=== PATIENT | female | born 1970 | race African-American/Black ===

== ENCOUNTER 2022-01-28 01:31 | Emergency (ER) | payer OTHER, SELFPAY ==
[2022-01-28] VITALS (7 sets, daily range): BP systolic 138–166; BP diastolic 78–106; PULSE 63–78; RESP 12–18; TEMP 36.1; O2SAT 98–100
--- NOTE | 2022-01-28 02:02 | ED.DIZZY ---
HPI - Dizziness General Chief Complaint: Dizziness Stated Complaint: vomiting Time Seen by Provider: 01/28/22 01:41 Source: patient, family and RN notes reviewed Mode of arrival: ambulatory Limitations: no limitations History of Present Illness HPI Narrative: 51-year-old female present to the emergency department for evaluation of recurrent dizziness. Patient states that 2 weeks ago she began having onset of dizziness that is worsened with head movement. Patient did have follow-up at an outside hospital and had a work-up including a head CT which was negative. Patient was provided meclizine and Zofran. Patient states that the Zofran has helped with her nausea but that she is still having symptoms of vertigo. Patient has been taking the meclizine more frequently without significant improvement. Patient denies any associated numbness or weakness. Patient denies any falls or injuries. Patient denies any headache or back or neck pain. Patient states the symptoms are very reproducible with turning her head or bending over. Symptoms are resolved when lying still or closing her eyes. Related Data Allergies Allergy/AdvReac Type Severity Reaction Status Date / Time No Known Allergies Allergy Verified 01/28/22 01:39 Review of Systems Review of Systems: CONSTITUTIONAL: Denies fever, chills, or sweats. EYES: Dizziness ENT: Denies rhinorrhea, congestion, sore throat, or otalgia. CARDIOVASCULAR: Denies chest pain, palpitations, or edema. RESPIRATORY: Denies cough or dyspnea. GASTROINTESTINAL: See HPI GENITOURINARY: Denies dysuria or hematuria. SKIN: Denies rash or itching. MUSCULOSKELETAL: Denies back pain, joint pain, or myalgia. NEUROLOGIC: See HPI PMFSH Family History Family History (Updated 05/09/16 @ 23:21 by DOCTOR UNKNOWN) Mother Patient's mother is in good health Father Patient's father is in good health Sibling Patient's sister is in good health Patient's brother is in good health Other Family history of malignant neoplasm of breast in first degree relative Social History Social History Smoking status: Never smoker Alcohol intake: never Exam Narrative: APPEARANCE: Well appearing, no pain, no distress, well-nourished. HEAD: normocephalic, atraumatic. EYES: PERRLA/EOMI, conjunctivae clear. Inducible vertigo when looking to the patient's right. Some sustained nystagmus with rightward gaze NOSE: Normal no drainage EARS:TMS clear with good light reflex. THROAT: Pharynx clear, no exudate. NECK: Supple. No adenopathy, no masses. RESPIRATORY: Airway patent, respirations nonlabored. Clear to auscultation bilaterally, no rales, rhonchi, wheezing. CARDIOVASCULAR: Regular rate and rhythm without murmurs rubs or gallops. ABDOMINAL: Soft, nontender, nondistended, normal bowel sounds MUSCULOSKELETAL: Moves all extremities. Strength/ROM intact, No edema, No calf tenderness. NEURO: Alert. Cranial nerves II through XII intact. Grossly intact SKIN: Warm, dry. Normal Color Course Course Emergency Course: Patient did feel some improvement with the treatment in the ED which did include p.o. Valium. Symptoms are consistent with a peripheral vertigo versus central vertigo. Patient was encouraged to have close follow-up with neurology with the hopes that she would be able to see a vestibular specialist. Patient was provided Valium for home and was warned on the increased fall risk not only from the vertigo but also from the Valium. Patient and family were comfortable with the plan for discharge and close follow-up. Patient was improved at time of discharge. Vital Signs Vital signs: Vital Signs Temperature 97.0 F L 01/28/22 01:37 Pulse Rate 78 01/28/22 01:37 Respiratory Rate 18 01/28/22 01:37 Blood Pressure 138/78 01/28/22 01:37 Pulse Oximetry 100 01/28/22 01:37 Temperature 97.0 F L 01/28/22 01:37 Pulse Rate 78 01/28/22 01:37 Respiratory Rate 18 01/28/22 01:37 Blood Pressure 138/78 04
[2022-01-28] MEDS: diphenhydrAMINE HCl INJ 50 MG/ML VIAL 25 MG IV PUSH (02:40)
[2022-01-28] MEDS: diazePAM (*CRX) 5 MG TABLET 2.5 MG PO (02:41)
[2022-01-28] MEDS: SODIUM CHLORIDE 0.9% IV 100 ML 500 ML (02:41)
[2022-01-28] MEDS: MECLIZINE HCL 25 MG TABLET PO (02:41)
[2022-01-28 02:49] LABS: Basophils Percent Auto 0.6 % (0.2-1.2); Eosinophils Absolute Auto 0.4 K/mm3 (0-0.3); Eosinophils Percent Auto 5.2 % (0-4.4); Hematocrit 42.6 % (37.0-47.0); Hemoglobin 13.3 g/dL (12.0-15.0); Immature Granulocyte Absolute 0.01 K/mm3 (0.00-0.031); Immature Granulocyte Percent A 0.1 % (0-0.5); Lymphocytes Percent Auto 31.6 % (18.3-44.2); Mean Corpuscular HGB Conc 31.2 g/dl (32-36); Mean Corpuscular Volume 83.4 fl (80-100); Mean Platelet Volume 10.7 fl (7.4-10.4); Monocytes Absolute Auto 0.6 K/mm3 (0.1-0.6); Monocytes Percent Auto 8.4 % (2.6-8.5); Neutrophils Absolute Auto 3.9 K/mm3 (1.3-6.7); Neutrophils Percent Auto 54.1 % (45.5-73.1); Platelet Count Result 311 k/mm3 (150-375); Red Blood Count 5.11 M/mm3 (4.2-5.4); Red Cell Distribution Width 16.6 % (11.5-14.5); White Blood Count 7.3 K/mm3 (4.5-10.0)
[2022-01-28 03:02] LABS: Alanine Aminotransferase 17 U/L (4-35); Albumin Level 4.8 g/dL (3.5-5.1); Alkaline Phosphatase 134 U/L (38-126); Anion Gap 7 mmol/L (8-16); Aspartate Amino Transferase 33 U/L (14-36); Bilirubin,Total 0.2 mg/dL (0.2-1.3); Blood Urea Nitrogen 15 mg/dL (7-17); Carbon Dioxide 35 mmol/L (22-30); Chloride 96 mmol/L (98-107); Estimated CRCL calculation 94 ml/min; Estimated Glomerular Filt Rate > 60; Glucose 119 mg/dL (65-110); Lipase 174 U/L (23-300); Potassium 3.6 mmol/L (3.4-5.0); Sodium 138 mmol/L (137-145)
== END 2022-01-28 04:55 | disposition home or self-care (01) ==
PROVIDERS: Emergency Provider Emergency Medicine; PCP Internal Medicine Infectious Disease
DX: H81.11 Benign paroxysmal vertigo, right ear (principal)
CPT/HCPCS: 36415; 80053; 83690; 85025; 96361; 96374; 99284; A9270; J1200

== ENCOUNTER 2023-04-08 08:00 | Emergency (ER) | payer OTHER, SELFPAY ==
[2023-04-08] VITALS (17 sets, daily range): BP systolic 115–179; BP diastolic 75–135; PULSE 51–99; RESP 7–17; TEMP 36.2; O2SAT 97–100
--- NOTE | ~2023-04-08 | XR_ITS ---
EXAMINATION: XR chest 2V DATE: 04/08/2023 08:44 INDICATION: Centralized chest pain TECHNIQUE: PA and lateral views of the chest are obtained. COMPARISON: None available FINDINGS: The lungs are free of acute opacities. No pleural effusion or pneumothorax. The cardiomedia stinal silhouette is normal. There is moderate thoracic spondylosis. IMPRESSION: 1. No acute cardiopulmonary abnormality. Reviewed, dictated and finalized at location []
--- NOTE | ~2023-04-08 | CT_ITS ---
EXAMINATION: CTA chest PE protocol DATE: 04/08/2023 10:34 INDICATION: Chest pain and dizziness TECHNIQUE: Computed tomography angiography (CTA) of the chest was performed with 100 mL Omnipaque-350 intravenous contrast timed to evaluate the pulmonary arteries. Coronal maximum intensity projection 3D-reconstructions were created by the technologist. The dose-length product (DLP) was 803.94 mGy-cm. Automated exposure control and iterative reconstruction technique were employed. COMPARISON: None. FINDINGS: The pulmonary arteries are well-opacified. No pulmonary embolism is identified. The lungs a re free of acute opacities. No pleural effusion or pneumothorax. No pathologically enlarged thoracic lymph nodes are identified. The heart size is normal. There is moderate thoracic spondylosis. IMPRESSION: 1. No pulmonary embolism or acute cardiopulmonary abnormality. Reviewed, dictated and finalized at location []
--- NOTE | 2023-04-08 08:10 | ECG_ITS ---
Measurements Intervals [place] Rate: 60 P: 49 PA: 147 QRS: -8 QRSD: 97 T: 61 QT: 451 QTc: 453 Interpretive Statements SINUS RHYTHM WITH OCCASIONAL VENTRICULAR PREMATURE COMPLEXES SHORT PA INTERVAL POSSIBLE LEFT ATRIAL ENLARGEMENT [-0.1mV P-WAVE IN V1/V2] POSSIBLE LEFT VENTRICULAR HYPERTROPHY [VOLTAGE CRITERIA PLUS LAE OR QRS WIDENING] ABNORMAL ECG Electronically Signed On 04-08-2023 12:00:12 CDT by Michael Freedman M.D.
[2023-04-08 08:36] LABS: Basophils Percent Auto 0.8 % (0.2-1.2); Eosinophils Absolute Auto 0.1 K/mm3 (0-0.3); Eosinophils Percent Auto 2.3 % (0-4.4); Hemoglobin 12.5 g/dL (12.0-15.0); Immature Granulocyte Absolute 0.01 K/mm3 (0.00-0.031); Immature Granulocyte Percent A 0.2 % (0-0.5); Lymphocytes Absolute Auto 1.87 K/mm3 (0.9-3.2); Mean Corpuscular HGB Conc 32.9 g/dl (32-36); Mean Corpuscular Hemoglobin 27.5 pg (26-34); Mean Corpuscular Volume 83.7 fl (80-100); Mean Platelet Volume 10.2 fl (7.4-10.4); Monocytes Absolute Auto 0.5 K/mm3 (0.1-0.6); Monocytes Percent Auto 10.2 % (2.6-8.5); Neutrophils Absolute Auto 2.6 K/mm3 (1.3-6.7); Neutrophils Percent Auto 50.5 % (45.5-73.1); Platelet Count Result 297 k/mm3 (150-375); Red Blood Count 4.54 M/mm3 (4.2-5.4); Red Cell Distribution Width 14.9 % (11.5-14.5); White Blood Count 5.2 K/mm3 (4.5-10.0)
[2023-04-08 08:45] LABS: Alanine Aminotransferase 19 U/L (6-35); Albumin Level 4.5 g/dL (3.5-5.1); Alkaline Phosphatase 99 U/L (38-126); Anion Gap 7 mmol/L (8-16); Aspartate Amino Transferase 29 U/L (14-36); Bilirubin,Total 0.5 mg/dL (0.2-1.3); Blood Urea Nitrogen 12 mg/dL (7-17); Calcium 9.2 mg/dL (8.4-10.2); Carbon Dioxide 36 mmol/L (22-30); Chloride 96 mmol/L (98-107); Estimated CRCL calculation 99 ml/min; Estimated Glomerular Filt Rate > 60; Glucose 81 mg/dL (65-110); Lipase 149 U/L (23-300); Sodium 139 mmol/L (137-145)
[2023-04-08 08:47] LABS: Prothrombin Time 13.7 Seconds (11.1-14.7)
[2023-04-08 08:48] LABS: Partial Thromboplastin Time 32.1 SECONDS (22.3-36.8)
--- NOTE | 2023-04-08 08:54 | ED.CHESTPAIN ---
HPI - Chest Pain General Chief Complaint: Chest Pain Stated Complaint: Weakness Time Seen by Provider: 04/08/23 08:53 History of Present Illness HPI narrative: Patient is a 52-year-old female with a history of hypertension here for evaluation of chest pain, generalized weakness, shortness of breath. States the pain is a 6 out of 10 in the center of her chest, nothing seems to make it worse or better. Denies any pain currently. Denies history of previous similar sensation. She has had diarrhea lately but no abdominal pain, nausea or vomiting. She reports some dizziness over the past several days but has a history of vertigo. She states she did not take her antihypertensives today. Related Data Home Medications Medication Instructions Recorded Confirmed amlodipine 10 mg tablet 10 mg PO DAILY 04/08/23 hydrochlorothiazide 25 mg tablet 25 mg PO DAILY 04/08/23 Allergies Allergy/AdvReac Type Severity Reaction Status Date / Time No Known Allergies Allergy Verified 04/08/23 08:33 Review of Systems Review of Systems: Gen.: Denies fevers or chills Eyes: Denies eye pain or visual change ENT: Denies congestion Respiratory: Denies shortness of breath or cough CV: Reports chest pain GI: Reports diarrhea. Denies abdominal pain nausea, emesis : denies burning, urgency, frequency or hematuria Musculoskeletal: Denies back pain or muscle pain Neuro: Denies numbness, tingling, weakness or focal weakness Skin: Denies rash Except as documented, all other systems reviewed and negative PMFSH Family History Family History (Updated 05/09/16 @ 23:21 by DOCTOR UNKNOWN) Mother Patient's mother is in good health Father Patient's father is in good health Sibling Patient's sister is in good health Patient's brother is in good health Other Family history of malignant neoplasm of breast in first degree relative Social History Social History Smoking status: Never smoker Alcohol intake: never Exam Narrative: APPEARANCE: Well appearing, no pain in distress, well-nourished. Head: Normocephalic and atraumatic. EYES: PERRLA/EOMI, conjunctivae clear NOSE: No nasal drainage EARS: External ear normal in appearance THROAT: Oropharynx is clear. Mucous membranes are moist. NECK: Supple. No adenopathy, no masses. RESPIRATORY: Airway patent, respirations nonlabored. Clear to auscultation bilaterally, no rales, rhonchi, wheezing. CARDIOVASCULAR: Regular rate and rhythm without murmurs, rubs, or gallops. ABDOMINAL: Normoactive bowel sounds. Soft, nontender, nondistended. No rebound tenderness or guarding. MUSCULOSKELETAL: Extremities are warm and well-perfused. Moves all extremities well. No edema. NEURO: Normal speech. No focal neurologic deficits. SKIN: Skin is warm and dry. No rashes. PSYCHIATRIC: Normal affect/mood. Course Vital Signs Vital signs: Vital Signs Temperature 97.2 F L 04/08/23 08:03 Pulse Rate 70 04/08/23 08:03 Respiratory Rate 17 04/08/23 08:03 Blood Pressure 152/90 H 04/08/23 08:03 Pulse Oximetry 100 04/08/23 08:03 Oxygen Delivery Room Air 04/08/23 08:03 Temperature 97.2 F L 04/08/23 08:03 Pulse Rate 99 04/08/23 15:50 Respiratory Rate 16 04/08/23 15:50 Blood Pressure 115/75 04/08/23 15:50 Pulse Oximetry 97 04/08/23 15:32 Oxygen Delivery Room Air 04/08/23 08:03 MDM - Chest Pain MDM Narrative Medical decision making narrative: 52-year-old female here for evaluation of multiple medical complaints as per HPI, most notable for central chest pressure today. Not exertional in nature. She is nontoxic in appearance, her blood pressure has been elevated throughout her ED stay, around 160/100, remainder vitals are normal. Basic labs unremarkable aside from slight hypokalemia to 3.0 which was replaced orally. Her EKG and troponin x3 are nonischemic. Dimer was slightly elevated and CTA was negative for PE or acute process. Patient did not have any
[2023-04-08 08:57] LABS: Troponin I 0.019 ng/mL (0.000-0.034)
[2023-04-08 09:24] LABS: Magnesium 2.1 mg/dL (1.6-2.3)
[2023-04-08 10:02] LABS: D Dimer 0.56 ug/mL (<0.48)
[2023-04-08] MEDS: POTASSIUM CHLORIDE 20 MEQ ER TABLET 40 MEQ PO (10:09)
[2023-04-08 11:57] LABS: Troponin I < 0.012 ng/mL (0.000-0.034)
[2023-04-08] MEDS: amLODIPine BESYLATE 5 MG TABLET 10 MG PO (12:46)
--- NOTE | 2023-04-08 14:01 | ECG_ITS ---
Measurements Intervals [place] Rate: 46 P: 54 NM: 144 QRS: 1 QRSD: 92 T: 63 QT: 458 QTc: 401 Interpretive Statements SINUS BRADYCARDIA WITH MARKED SINUS ARRHYTHMIA POSSIBLE LEFT ATRIAL ENLARGEMENT [-0.1mV P-WAVE IN V1/V2] SHORT NM INTERVAL ABNORMAL ECG COMPARED TO ECG 04/08/2023 08:23:27 SINUS BRADYCARDIA NOW PRESENT SINUS ARRHYTHMIA NOW PRESENT Electronically Signed On 04-08-2023 14:40:04 CDT by Michael Freedman M.D.
[2023-04-08] MEDS: cloNIDine HCL 0.1 MG TABLET PO (14:04)
[2023-04-08 14:43] LABS: Troponin I < 0.012 ng/mL (0.000-0.034)
[2023-04-08] MEDS: hydrALAZINE HCL 20 MG/ML VIAL 10 MG IV PUSH (15:32)
== END 2023-04-08 15:50 | disposition home or self-care (01) ==
PROVIDERS: Emergency Medicine; Emergency Provider Physician Assistant; PCP Internal Medicine Infectious Disease
DX: R07.89 Other chest pain (principal); I10 Essential (primary) hypertension
CPT/HCPCS: 36415; 71046; 71275; 80053; 83690; 83735; 84484; 85025; 85380; 85610; 85730; 93005; 96374; 99284; A9270; J0360; Q9967

== ENCOUNTER 2024-05-12 09:53 | Emergency (ER) | payer OTHER, SELFPAY ==
--- NOTE | ~2024-05-12 | CT_ITS ---
CT abdomen pelvis w con Ordering provider: Edward Chaney MD History: 53 years Female with . RLQ pain . Comparison: None. Technique: CT abdomen and pelvis with IV and without oral contrast. Automated exposure control and it erative reconstruction technique were employed. The dose-length product was 1514.68 mGy-cm. 100 mL Om nipaque 350 was given IV. Findings: VISUALIZED LOWER CHEST: Dependent atelectatic changes. UPPER ABDOMINAL ORGANS: Liver: Mild hepatomegaly. Gallbladder: Normal. Spleen: Normal. Stomach/duodenum: Normal. Pancreas: Normal. Adrenals: Normal. Kidneys: Scarring is seen in the right kidney PELVIC ORGANS: The bladder is underfilled. Slightly bulky uterus. BOWEL AND MESENTERY: Colon: No evidence of diverticulitis. Slight thickening in the area of the sigmoid colon. Further janet luation advised. Normal appendix. Small Bowel: Normal. No obstruction. Peritoneum/mesentery: No free air or free fluid. No mesenteric lymphadenopathy. RETROPERITONEUM: Mild atheromatous disease of the abdominal aorta. No retroperitoneal lymphadenopat hy. MUSCULOSKELETAL: Superficial soft tissues: The superficial soft tissues are normal. Bones: Age appropriate degenerative changes of the spine. IMPRESSION: 1. No evidence of appendicitis, diverticulitis or intestinal obstruction. 2. Slightly bulky uterus. Clinical correlation advised. 3. Lobulated outline of the right kidney most likely due to old scarring. Reviewed, dictated and finalized at location A.
[2024-05-12 09:59] VITALS: BP 205/118; PULSE 69; RESP 17; TEMP 36.4; O2SAT 97
[2024-05-12] MEDS: MORPHINE SULFATE (*CRX) 4 MG/ML INJ IV PUSH (10:20)
[2024-05-12 10:21] LABS: Basophils Percent Auto 0.1 % (0.2-1.2); Eosinophils Absolute Auto 0.1 K/mm3 (0-0.3); Eosinophils Percent Auto 1.1 % (0-4.4); Hematocrit 36.5 % (37.0-47.0); Immature Granulocyte Absolute 0.01 K/mm3 (0.00-0.031); Immature Granulocyte Percent A 0.1 % (0-0.5); Lymphocytes Absolute Auto 1.72 K/mm3 (0.9-3.2); Lymphocytes Percent Auto 23.7 % (18.3-44.2); Mean Corpuscular HGB Conc 32.9 g/dl (32-36); Mean Corpuscular Hemoglobin 27.9 pg (26-34); Mean Corpuscular Volume 84.9 fl (80-100); Mean Platelet Volume 10.3 fl (7.4-10.4); Monocytes Absolute Auto 0.5 K/mm3 (0.1-0.6); Monocytes Percent Auto 6.6 % (2.6-8.5); Neutrophils Percent Auto 68.4 % (45.5-73.1); Platelet Count Result 291 k/mm3 (150-375); Red Cell Distribution Width 15.2 % (11.5-14.5); White Blood Count 7.3 K/mm3 (4.5-10.0)
--- NOTE | 2024-05-12 10:23 | PC.NURSE ---
pt made aware we need a urine sample. pt states she will hit her call button when she can go.
[2024-05-12 10:26] VITALS: BP 176/93; PULSE 71; RESP 18; O2SAT 95
[2024-05-12 10:31] LABS: Alanine Aminotransferase 15 U/L (6-35); Albumin Level 4.4 g/dL (3.5-5.1); Alkaline Phosphatase 104 U/L (38-126); Anion Gap 10 mmol/L (4-12); Aspartate Amino Transferase 23 U/L (14-36); Bilirubin,Total 0.4 mg/dL (0.2-1.3); Blood Urea Nitrogen 11 mg/dL (7-17); Carbon Dioxide 27 mmol/L (22-30); Chloride 102 mmol/L (98-107); Estimated CRCL calculation 98 ml/min; Estimated Glomerular Filt Rate > 60; Glucose 104 mg/dL (65-110); Lipase 113 U/L (23-300); Potassium 3.5 mmol/L (3.4-5.0); Sodium 139 mmol/L (137-145)
--- NOTE | 2024-05-12 12:00 | ED.ABDPAIN ---
HPI - Abdominal Pain General Chief Complaint: Abdominal Pain Stated Complaint: LOWER ABD PAIN X1WK Time Seen by Provider: 05/12/24 09:56 History of Present Illness HPI narrative: Patient is a 53-year-old female who has been having lower abdominal cramping over last week. Radiates into her buttock. She has been slightly constipated. No diarrhea. No fevers or chills or sweats. She does report dysuria but no urinary frequency. No vaginal discharge or vaginal bleeding. No concerns for STI. Blood pressure is elevated here but she has not taken her medication today. Related Data Home Medications Medication Instructions Recorded Confirmed amlodipine 10 mg tablet 10 mg PO DAILY 04/08/23 hydrochlorothiazide 25 mg tablet 25 mg PO DAILY 04/08/23 Allergies Allergy/AdvReac Type Severity Reaction Status Date / Time No Known Allergies Allergy Verified 05/12/24 10:14 Review of Systems Review of Systems: All systems reviewed & are unremarkable except as noted in HPI and below Constitutional: Constitutional: Reports no additional constitutional complaints Cardiovascular: Cardiovascular: Reports no additional cardiovascular complaints Respiratory: Respiratory: Reports no additional respiratory complaints Gastrointestinal: Gastrointestinal: Reports abdominal pain, Reports constipation, Denies diarrhea, Denies nausea and Denies vomiting Genitourinary: Genitourinary: Denies abnormal vaginal bleeding, Denies nocturia, Reports dysuria and Denies pelvic pain Musculoskeletal: Musculoskeletal: Reports no additional musculoskeletal complaints [facility] Past Medical History Medical History (Updated 05/12/24 @ 12:52 by Edward Chaney MD) Essential hypertension Family History Family History (Updated 05/09/16 @ 23:21 by DOCTOR UNKNOWN) Mother Patient's mother is in good health Father Patient's father is in good health Sibling Patient's sister is in good health Patient's brother is in good health Other Family history of malignant neoplasm of breast in first degree relative Social History Social History Smoking status: Never smoker Alcohol intake: never Exam Narrative: GENERAL: Well-appearing, obese, and in no acute distress. HEAD: Normocephalic, atraumatic. ENT: Mucous membranes moist. CHEST: Clear to auscultation. No respiratory distress. HEART: Regular rate and rhythm. Normal peripheral pulses. ABDOMEN: Soft, nontender, nondistended. EXTREMITIES: Normal range of motion. No edema. SKIN: Warm, dry, no rash. NEURO: Alert and oriented x3. PSYCH: Normal mood and affect. Course Vital Signs Vital signs: Vital Signs Temperature 97.6 F 05/12/24 09:59 Pulse Rate 69 05/12/24 09:59 Respiratory Rate 17 05/12/24 09:59 Blood Pressure 205/118 H 05/12/24 09:59 Pulse Oximetry 97 05/12/24 09:59 Oxygen Delivery Room Air 05/12/24 09:59 Temperature 97.6 F 05/12/24 09:59 Pulse Rate 71 05/12/24 10:26 Respiratory Rate 18 05/12/24 10:26 Blood Pressure 176/93 H 05/12/24 10:26 Pulse Oximetry 95 05/12/24 10:26 Oxygen Delivery Room Air 05/12/24 09:59 MDM - Abdominal Pain MDM Narrative Medical decision making narrative: -Course: Resting comfortably in the ER. No acute issues. Discussed care plan. -Co-morbidities complicating care: Obesity, hypertension -Social determinants of health: None -External Chart Review: None -Hx from independent Sources: Patient -Independent interpretation of studies: Normal CBC and BMP. CT of the abdomen pelvis without acute issue. UA consistent with infection -Interventions: Morphine 4 mg IV. -Shared decision making / Disposition: Discharged home with cephalexin. Lab Data 05/12/24 10:13 05/12/24 10:13 Labs: Lab Results 05/12/24 05/12/24 05/12/24 Range/Units 10:13 12:08 12:11 WBC 7.3 (4.5-10.0) K/mm3 RBC 4.30 (4.2-5.4) M/mm3 Hgb 12.0 (12.0-15.0) g/dL Hct 36.5 L
[2024-05-12 12:13] LABS: BEDSIDEPREGUCG Negative
[2024-05-12 12:18] LABS: Add Urine Microscopic? YES; Appearance Urine Clear (Clear); Bacteria Urine 2+ /hpf; Bilirubin Urine Negative (Negative); Blood Urine Negative (Negative); Color Urine Yellow (Yellow); Glucose Urine UA Negative (Negative); Ketones Urine Negative (Negative); Leukocyte Esterase Ur 1+ LEU/UL (Negative); Nitrate Urine Negative (Negative); Non Pathogenic Casts 0-2; Protein Urine Trace mg/dL (Negative); RBC Urine 0-2 /hpf (0-2); Specific Grav Ur > 1.045 (1.001-1.035); Squamous Epithelial Cell Urine None Seen /hpf (Few); WBC Urine 21-50 /hpf (0-3)
[2024-05-12 13:27] VITALS: BP 162/94; PULSE 66; RESP 17; O2SAT 99
== END 2024-05-12 13:28 | disposition home or self-care (01) ==
PROVIDERS: Emergency Provider Emergency Medicine; PCP Internal Medicine Infectious Disease
DX: N39.0 Urinary tract infection, site not specified (principal); I10 Essential (primary) hypertension
CPT/HCPCS: 36415; 74177; 80053; 81001; 81025; 83690; 85025; 87077; 87086; 87088; 87186; 96374; 99284; J2270; Q9967